=== PATIENT | female | born 1990 | race African-American/Black ===

== ENCOUNTER 2017-11-04 17:36 | Emergency (ER) | payer SELFPAY ==
[~2017-11-04] VITALS: Ht 175.3 cm; Wt 90.7 kg
[2017-11-04 17:44] VITALS: BP 128/102
== END 2017-11-04 20:15 | disposition home or self-care (01) ==
LOC: ER 17:50
DX: S93.401A Sprain of unspecified ligament of right ankle, initial encounter (principal); J45.909 Unspecified asthma, uncomplicated; Z88.0 Allergy status to penicillin; X50.1XXA Overexertion from prolonged static or awkward postures, initial encounter; Y93.89 Activity, other specified; Y92.89 Other specified places as the place of occurrence of the external cause; Y99.8 Other external cause status
CPT/HCPCS: 73610-TC; 73630-TC; 84703-TC; A4606; Z7610